=== PATIENT | male | born 1995 | race Caucasian/White ===

== ENCOUNTER 2021-04-06 09:53 | Emergency (ER) | payer BC, OTHER ==
[2021-04-06] MEDS ORDERED: Ondansetron 4 MG/2 ML SDV IVPUSH ONE (11:33)
[2021-04-06] MEDS ORDERED: Sodium Chloride 0.9% 1,000 ML IV STA (11:33)
[2021-04-06] MEDS ORDERED: Ketorolac 30 MG/ML SDV IVPUSH ONE (11:47)
--- NOTE | 2021-04-06 11:54 | EDM.PDOC ---
ED HPI GENERAL MEDICAL PROBLEM - General Chief Complaint: Gastrointestinal Problem Stated Complaint: COVID +/CANT EAT Time Seen by Provider: 04/06/21 11:10 Source of Information: Reports: Patient, RN Notes Reviewed History Limitations: Reports: No Limitations - History of Present Illness INITIAL COMMENTS - FREE TEXT/NARRATIVE: Patient is a 25-year-old male presenting to the emergency department with complaints of fever, body aches, nausea, vomiting, diarrhea as well as cough. He was diagnosed as Covid +7 days ago. Reports that anytime he drinks more than just a sip, he will vomit. Complains of cough with some burning in his chest but no significant shortness of breath. He has not taken any Tylenol or ibuprofen today. He has history of hypothyroidism but no other chronic medical conditions. He was not vaccinated for Covid. Headache Pain Score (Numeric/FACES): 10 - Related Data Allergies Allergy/AdvReac Type Severity Reaction Status Date / Time No Known Allergies Allergy Verified 04/06/21 11:06 Home Meds: Home Meds Levothyroxine 112 mcg PO DAILY 04/06/21 [History] Ondansetron [Zofran ODT] 4 mg PO Q6H PRN #10 tab.dis 04/06/21 [Rx] Past Medical History Gastrointestinal History: Reports: Other (See Below) Other Gastrointestinal History: unsure of names of disorders, reports had an "amemba that gave him liver problems" Social & Family History - Caffeine Use Caffeine Use: Reports: Energy Drinks ED ROS GENERAL - Review of Systems Review Of Systems: See Below Constitutional: Reports: Fever, Chills, Fatigue, Decreased Appetite HEENT: Reports: No Symptoms Respiratory: Reports: Pleuritic Chest Pain (burning), Cough. Denies: Shortness of Breath, Wheezing Cardiovascular: Reports: No Symptoms. Denies: Chest Pain, Lightheadedness, Palpitations, Syncope Endocrine: Reports: No Symptoms GI/Abdominal: Reports: Diarrhea, Vomiting. Denies: Abdominal Pain, Bloody Stool, Hematemesis : Reports: No Symptoms Musculoskeletal: Reports: Other (body aches) Skin: Reports: No Symptoms Neurological: Reports: Headache. Denies: Confusion, Dizziness Psychiatric: Reports: No Symptoms Hematologic/Lymphatic: Reports: No Symptoms Immunologic: Reports: No Symptoms ED EXAM, GENERAL - Physical Exam Exam: See Below Exam Limited By: No Limitations General Appearance: Alert, WD/WN, No Apparent Distress Respiratory/Chest: No Respiratory Distress, Lungs Clear, Normal Breath Sounds, No Accessory Muscle Use, Chest Non-Tender Cardiovascular: Normal Peripheral Pulses, Regular Rate, Rhythm, No Edema, No Gallop, No JVD, No Murmur, No Rub GI/Abdominal: Normal Bowel Sounds, Soft, Non-Tender, No Organomegaly, No Distention, No Abnormal Bruit, No Mass Neurological: Alert, Oriented, CN II-XII Intact, Normal Cognition, Normal Gait, Normal Reflexes, No Motor/Sensory Deficits Psychiatric: Normal Affect, Normal Mood Skin Exam: Warm, Dry, Intact, Normal Color, No Rash Course - Vital Signs Last Recorded V/S: Last Vital Signs Temp 100.2 F 04/06/21 11:00 Pulse 97 04/06/21 13:35 Resp 18 04/06/21 13:35 BP 117/75 04/06/21 13:35 Pulse Ox 98 04/06/21 13:35 - Orders/Labs/Meds Labs: Laboratory Tests 04/06/21 04/06/21 Range/Units 11:18 11:18 WBC 7.19 (4.23-9.07) K/mm3 RBC 5.94 (4.63-6.08) M/mm3 Hgb 17.2 D (13.7-17.5) gm/dl Hct 51.3 H (40.1-51.0) % MCV 86.4 (79.0-92.2) fl MCH 29.0 (25.7-32.2) pg MCHC 33.5 (32.2-35.5) g/dl RDW Std Deviation 43.0 (35.1-43.9) fL Plt Count 199 (163-337) K/mm3 MPV 9.6 (9.4-12.3) fl Neut % (Auto) 73.1 H (34.0-67.9) % Lymph % (Auto) 15.2 L (21.8-53.1) % [place] % (Auto) 11.1 (5.3-12.2) % Eos % (Auto) 0 L (0.8-7.0) Baso % (Auto) 0.3 (0.1-1.2) % Neut # (Auto) 5.26 (1.78-5.38) K/mm3 Lymph # (Auto) 1.09 L (1.32-3.57) K/mm3 [place] # (Auto) 0.80 (0.30-0.82) K/mm3 Eos # (Auto) 0.00 L (0.04-0.54) K/mm3 Baso # (Auto) 0.02 (0.01-0.08) K/mm3 Sodium 137 (136-145) mEq/L Potassium 3.7 (3.5-5.1) mEq/L Chloride 99 (98-107) mEq/L Carbon Dioxide 24 (21-32) mEq/L Anion Gap 17.7 H (5-15) BUN 11 (7-18) mg/dL Creatinine 1.2 (0.7-1.3) mg/dL Est Cr Clr Drug Dosing 82.57 mL/min Estimated GFR (MDRD) > 60 (>60) mL/min BUN/Creatinine Ratio 9.2 L (14-18) Glucose 94 (70-99) mg/dL Calcium 8.4 L D (8.5-10.1) mg/dL Magnesium 2.1 (1.8-2.4) mg/dL Total Bilirubin 0.7 (0.2-1.0) mg/dL AST 31 (15-37) U/L ALT 49 (16-63) U/L Alkaline Phosphatase 88 (46-116) U/L C-Reactive Protein 2.3 H* (<1.0) mg/dL Total Protein 8.5 H (6.4-8.2) g/dl Albumin 4.3 (3.4-5.0) g/dl Globulin 4.2 gm/dL Albumin/Globulin Ratio 1.0 (1-2) Meds: Medications Discontinued Medications Generic Name Dose Route Start Last Admin Trade Name Freq PRN Reason Stop Dose Admin Diphenhydramine HCl 50 mg 04/06/21 13:05 Diphenhydramine 50 Mg/Ml Sdv IVPUSH ONETIME PRN hypersensitivity reaction Epinephrine HCl 0.3 mg 04/06/21 13:05 Epinephrine 1 Mg/Ml Sdv IM ONETIME PRN hypersensitivity reaction Famotidine 20 mg 04/06/21 13:05 Famotidine 20 Mg/2 Ml Sdv IVPUSH ONETIME PRN hypersensitivity reaction Sodium Chloride 1,000 mls @ 999 mls/hr 04/06/21 11:33 04/06/21 11:43 Normal Saline IV 04/06/21 12:33 999 mls/hr NOW STA Administration CASIRIVIMAB/IMDEVIMAB 10 ml/ 110 mls @ 220 mls/hr 04/06/21 13:05 04/06/21 13:30 Sodium Chloride IV 04/06/21 13:34 220 mls/hr ONETIME ONE Administration Ketorolac Tromethamine 30 mg 04/06/21 11:47 04/06/21 11:56 Ketorolac 30 Mg/Ml Sdv IVPUSH 04/06/21 11:48 30 mg ONETIME ONE Administration Methylprednisolone Sodium Succinate 125 mg 04/06/21 13:05 Methylprednisolone Sodium Succinate 125 Mg/2 Ml Sdv IVPUSH ONETIME PRN hypersensitivity reaction Ondansetron HCl 4 mg 04/06/21 11:33 04/06/21 11:44 Ondansetron 4 Mg/2 Ml Sdv IVPUSH 04/06/21 11:34 4 mg ONETIME ONE Administration Sodium Chloride 30 ml 04/06/21 13:15 04/06/21 14:01 Sodium Chloride 0.9% 10 Ml Syringe FLUSH 30 ml ASDIRECTED HARRIS Administration - Re-Assessments/Exams Free Text/Narrative Re-Assessment/Exam: Patient is a 25-year-old male presenting to the emergency department with complaints of fever, body aches, vomiting, cough, loss of taste and smell. He is approximately 7 days into his Covid 19 illness. Denies any significant shortness of breath. Lung sounds are clear on exam. I have ordered blood work, chest x-ray, 1 L bolus of normal saline, Zofran, and Toradol. 04/06/21 12:32 Hematology significant for anion gap elevated 17.7, calcium 8.4. CRP 2.3. Otherwise unremarkable. 04/06/21 13:05 Chest x-ray shows no acute abnormalities. Results discussed with patient. He would like to receive the monoclonal antibody infusion. I spoke with patient to provide information about Regeneron treatment for patient I offered them the ``Patient and Caregiver EUA Regeneron Fact Sheet to read and review I stated the drug has been approved by an emergency use authorization (EUA) process and has not fully been FDA reviewed or approved The patient meets the EUA requirements I discussed there are other potential treatment options that are currently not FDA approved to treat COVID-19. Offered opportunity to ask questions and all questions were answered Patient voiced understanding and agreed to proceed with treatment for patient. 04/06/21 1500 Patient completed monoclonal antibody infusion and waiting period without adverse event. We will discharge home with prescription for Zofran for nausea. Discharge instructions as documented. Departure - Departure Time of Disposition: 15:00 Disposition: Home, Self-Care 01 Condition: Good Clinical Impression: COVID-19 - Discharge Information *PRESCRIPTION DRUG MONITORING PROGRAM REVIEWED*: No *COPY OF PRESCRIPTION DRUG MONITORING REPORT IN PATIENT GLORIA: No Prescriptions: Ondansetron [Zofran ODT] 4 mg PO Q6H PRN #10 tab.dis PRN Reason: Nausea/Vomiting Instructions: COVID-19 Referrals: Kang Tilley MD [Primary Care Provider] - Forms: ED Department Discharge Additional Instructions: You were seen in the emergency department today for evaluation of her Covid symptoms. Work-up included blood work and chest x-ray. Results of your work-up showed that you were slightly dehydrated but were otherwise normal. You received a liter of IV fluids, Zofran for nausea, and Toradol for your fever and discomfort. You also received infusion of Regeneron, monoclonal antibodies. Recommend that you go home and rest. Ensure that you are taking an adequate amount of fluid. You have been sent a prescription for Zofran for nausea. Use this as prescribed. If you experience any new or worsening symptoms, please do not hesitate to return to the emergency department for reevaluation. Sepsis Event Note (ED) - Evaluation Sepsis Screening Result: No Definite Risk - Focused Exam Vital Signs: Vital Signs Temp Pulse Resp BP Pulse Ox 04/06/21 13:35 97 18 117/75 98 04/06/21 13:20 102 H 18 109/87 98 04/06/21 11:00 100.2 F 123 H 18 119/83 100
[2021-04-06] MEDS ORDERED: diphenhydrAMINE 50 MG/ML SDV IVPUSH PRN (13:05)
[2021-04-06] MEDS ORDERED: methylPREDNISolone Sodium Succinate 125 MG/2 ML SDV IVPUSH PRN (13:05)
[2021-04-06] MEDS ORDERED: Famotidine 20 MG/2 ML SDV IVPUSH PRN (13:05)
[2021-04-06] MEDS ORDERED: EPINEPHrine 1 MG/ML SDV IM PRN (13:05)
--- NOTE | 2021-04-06 13:11 | CR ---
Chest: Portable view of the chest was obtained. Comparison: No prior chest imaging is available. Heart size and mediastinum are normal. Lungs are clear with no acute parenchymal change. Bony structures show nothing acute. Impression: 1. Nothing acute is seen on portable chest x-ray. Diagnostic code #1
[2021-04-06] MEDS ORDERED: Sodium Chloride 0.9% 10 ML Syringe FLUSH SCH (13:15)
== END 2021-04-06 15:00 | disposition home or self-care (01) ==
LOC: JD.ED 09:53
DX: U07.1 COVID-19 (principal)
CPT/HCPCS: 36415; 71045; 80053; 83735; 85025; 86140; 96374; 96375; 99284; J1885; J2405; J7030; M0243; Q0243

== ENCOUNTER 2024-10-11 08:04 | Emergency (ER) | payer BC ==
[2024-10-11 09:06] LABS: APPEARANCE,URINE CLEAR (Clear); BILIRUBIN,URINE NEGATIVE (Negative); COLOR,URINE YELLOW (Yellow); GLUCOSE,URINE NEGATIVE (Negative); KETONES,URINE NEGATIVE (Negative); LEUKOCYTE ESTERASE,URINE NEGATIVE (Negative); NITRITE,URINE NEGATIVE (Negative); OCCULT BLOOD,URINE NEGATIVE (Negative); PROTEIN,URINE NEGATIVE (Negative); UROBILINOGEN,URINE 0.2 (0.2-1.0)
[2024-10-11] MEDS: cefTRIAXone 500 MG, Lidocaine 1% 1 ML IM SCH (10:30)
[2024-10-11 10:38] LABS: C. TRACHOMATIS BY PCR DETECTED; N. GONORRHOEAE BY PCR NOT DETECTED
== END 2024-10-11 11:15 | disposition home or self-care (01) ==
LOC: JD.ED 08:04
DX: A56.19 Other chlamydial genitourinary infection (principal); E03.9 Hypothyroidism, unspecified; Z79.899 Other long term (current) drug therapy; Z79.890 Hormone replacement therapy; Z86.16 Personal history of COVID-19
CPT/HCPCS: 36415; 76870; 76870-26; 81003; 87491; 87591; 93975; 96372; 99283; 99284; G0433; J0696; J2003